=== PATIENT | female | born 1990 | race Caucasian/White ===

== ENCOUNTER 2021-05-15 10:28 | Emergency (ER) | payer OTHER ==
[~2021-05-15] VITALS: Ht 154.9 cm; Wt 59.0 kg
[2021-05-15 10:36] VITALS: BP_SYST 120
--- NOTE | 2021-05-15 10:36 | NUR ---
Pt. came in on crutches post an injury 1 week ago where she twisted left ankle, has pain 3/10 that increases to 5/10 with any weight bearing activity
--- NOTE | 2021-05-15 10:56 | NUR ---
ER in triage examining patient.
[2021-05-15 11:23] VITALS: BP_SYST 120
--- NOTE | 2021-05-15 11:24 | NUR ---
Patient given written and verbal discharge instructions and verbalizes understanding. ER Dr. Rivera discussed with patient the results and treatment provided. Patient in stable condition. ID arm band removed. Patient educated on pain management and to follow up with PMD. Pain Scale 3. Opportunity for questions provided and answered.
== END 2021-05-15 11:24 | disposition home or self-care (01) ==
LOC: SED 10:28
DX: S93.402A Sprain of unspecified ligament of left ankle, initial encounter (principal); X50.1XXA Overexertion from prolonged static or awkward postures, initial encounter; Y93.89 Activity, other specified; Y92.89 Other specified places as the place of occurrence of the external cause; Y99.8 Other external cause status
CPT/HCPCS: 99281

== ENCOUNTER 2022-01-27 19:56 | Emergency (ER) | payer OTHER ==
[~2022-01-27] VITALS: Ht 154.9 cm; Wt 65.8 kg
--- NOTE | 2022-01-27 20:10 | NUR ---
PT FROM HOME WITH C/O OF ABD PAIN X 4 DAYS AFTER STARTING AZITHROMYCIN FOR STREP INFECTION. PT REPORTS ABD PAIN IS MID AND HAS MOMENTS OF SHARP PAIN THAT TURNS DULL. PT DENIES URINARY ISSUES. VSS. TO REMAIN IN WAITING ROOM FOR MSE.
[2022-01-27 21:08] LABS: BASOPHILS % (AUTO) 0.4 % (0.0-2.0); EOSINOPHILS # (AUTO) 0.2 K/uL (0.0-0.4); EOSINOPHILS % (AUTO) 1.5 % (0.0-4.0); HEMATOCRIT 41.6 % (36-48); MEAN CORPUSCULAR HEMOGLOBIN 30 pg (27-31); MEAN CORPUSCULAR HGB CONC 34 % (32-36); MEAN CORPUSCULAR VOLUME 89 fL (79.0-98.0); MONOCYTES # (AUTO) 0.7 K/uL (0.0-1.0); MONOCYTES % (AUTO) 6.3 % (1.7-9.3); NEUTROPHILS # (AUTO) 7.1 K/uL (1.8-7.7); NEUTROPHILS % (AUTO) 64.8 % (40.0-70.0); PLATELET COUNT (AUTO) 366 K/uL (130-430); RED BLOOD CELL COUNT(AUTO) 4.66 MIL/uL (4.2-6.2); RED CELL DISTRIBUTION WIDTH 13.5 % (9.0-15.0); WHITE BLOOD COUNT (AUTO) 10.9 K/uL (4.8-10.8)
[2022-01-27 21:30] LABS: CALCIUM 9.3 mg/dL (8.4-11.0); CREATININE 0.84 mg/dL (0.55-1.30)
[2022-01-27 21:35] LABS: ALBUMIN 4.2 g/dL (3.4-4.8); TOTAL BILIRUBIN 0.2 mg/dL (0.0-1.0)
--- NOTE | 2022-01-27 21:48 | NUR ---
PREG URINE TEST - NEG
[2022-01-27 21:56] LABS: BILIRUBIN,URINE NEGATIVE (NEGATIVE); CLARITY/URINE CLEAR (CLEAR); COLOR,URINE YELLOW (YELLOW); GLUCOSE,URINE NEGATIVE (NEGATIVE); KETONES,URINE NEGATIVE (NEGATIVE); LEUKOCYTE ESTERASE ,URINE NEGATIVE (NEGATIVE); NITRITE, URINE NEGATIVE (NEGATIVE); PH,URINE 5.5 (5.0-8.0); PROTEIN URINE NEGATIVE (NEGATIVE); UROBILINOGEN,URINE 0.2 (0.2-1.0)
[2022-01-27 22:05] LABS: BLOOD, URINE TRACE (NEGATIVE)
[2022-01-27 22:06] LABS: BACTERIA,URINE RARE /HPF (None Seen); MUCUS,URINE None Seen /LPF (None Seen); RBC,URINE 0-3 /HPF (0-3); URIC ACID CRYSTALS,URINE 0-10 /HPF (None Seen); WBC,URINE NONE SEEN /HPF (0-3)
== END 2022-01-27 23:00 | disposition left against medical advice (07) ==
LOC: SED 19:56
DX: R10.9 Unspecified abdominal pain (principal); Z53.21 Procedure and treatment not carried out due to patient leaving prior to being seen by health care provider
CPT/HCPCS: 36415; 80053; 81000; 81025; 83690; 85025